=== PATIENT | female | born 1970 | race Two or more races ===

== ENCOUNTER 2021-04-30 10:45 | Inpatient (IN) | payer OTHER ==
[~2021-04-30] VITALS: Ht 154.9 cm
[2021-04-30] MEDS ORDERED: LOSARTAN-HCTZ1 EAC2 PO (14:48)
[2021-04-30] MEDS ORDERED: NORVASC10 MG PO (14:48)
== END 2021-05-05 13:00 | disposition home or self-care (01) | DRG 827 ==
LOC: O/R 05-02 07:38 → OB/GYN 05-02 07:38 → SURH 05-02 10:45 → OB/GYN 05-03 08:47
PROVIDERS: Surgery; ADMIT Obstetrics & Gynecology Gynecologic Oncology; ATTEND Obstetrics & Gynecology Gynecologic Oncology
PROC: 0UT90ZZ Resection of Uterus, Open Approach (ICD-10-PCS; 2021-05-02)
PROC: 0UT20ZZ Resection of Bilateral Ovaries, Open Approach (ICD-10-PCS; 2021-05-02)
PROC: 0UT70ZZ Resection of Bilateral Fallopian Tubes, Open Approach (ICD-10-PCS; 2021-05-02)
PROC: 0WBH0ZZ Excision of Retroperitoneum, Open Approach (ICD-10-PCS; principal; 2021-05-02 15:45)
PROC: 0WUF0JZ Supplement Abdominal Wall with Synthetic Substitute, Open Approach (ICD-10-PCS; 2021-05-02 15:45)
DX: C48.0 Malignant neoplasm of retroperitoneum (principal); C49.8 Malignant neoplasm of overlapping sites of connective and soft tissue; K43.0 Incisional hernia with obstruction, without gangrene; K42.0 Umbilical hernia with obstruction, without gangrene; N72 Inflammatory disease of cervix uteri; N83.292 Other ovarian cyst, left side; N83.291 Other ovarian cyst, right side; N94.89 Other specified conditions associated with female genital organs and menstrual cycle